=== PATIENT | male | born 1975 | race Caucasian/White ===

== ENCOUNTER 2023-03-23 04:53 | Day surgery (SDC) | payer OTHER ==
[2023-03-23 09:47] VITALS: BMI 47.9
[2023-03-23 10:55] VITALS: TEMP 97.1
[2023-03-23 11:58] LABS: BASO % 0.8 % (0-2.0); EOS % 2.5 % (0-4.5); HEMATOCRIT 40.9 % (35.4-49); HEMOGLOBIN 13.5 GM/dL (11.7-16.9); LYMPH % 21.4 % (8-40); MCH 26.8 pg (25.7-33.7); MEAN CELL VOLUME 81.4 fl (80-96); MONO % 7.9 % (3.8-10.2); NEUT % 67.4 % (42.8-82.8); PLATELET COUNT 414 10^3/uL (134-434); RBC 5.03 M/mm3 (4.00-5.60); RDW 15.4 % (11.9-15.9); WHITE BLOOD COUNT 6.3 K/mm3 (4.0-10.0)
[2023-03-23 12:20] LABS: POTASSIUM 3.6 mmol/L (3.5-5.1)
[2023-03-23 12:22] LABS: ALBUMIN 3.4 g/dl (3.4-5.0); CALCIUM 9.3 mg/dL (8.5-10.1)
[2023-03-23 12:23] LABS: BLOOD UREA NITROGEN 10.6 mg/dL (7-18)
[2023-03-23 12:25] LABS: CREATININE 0.9 mg/dL (0.55-1.3)
[2023-03-23 12:27] LABS: BILIRUBIN,TOTAL 0.4 mg/dL (0.2-1)
[2023-03-23 14:29] VITALS: BP 139/74; PULSE 74; RESP 18
== END 2023-03-23 13:00 | disposition home or self-care (01) ==
LOC: JASU-ENDO 04:53
PROVIDERS: ATTEND Student in an Organized Health Care Education/Training Program
PROC: 0DBK8ZX Excision of Ascending Colon, Via Natural or Artificial Opening Endoscopic, Diagnostic (ICD-10-PCS; 2023-03-23)
PROC: 0DBM8ZX Excision of Descending Colon, Via Natural or Artificial Opening Endoscopic, Diagnostic (ICD-10-PCS; 2023-03-23)
PROC: 0DBH8ZX Excision of Cecum, Via Natural or Artificial Opening Endoscopic, Diagnostic (ICD-10-PCS; 2023-03-23)
PROC: 3E0H8KZ Introduction of Other Diagnostic Substance into Lower GI, Via Natural or Artificial Opening Endoscopic (ICD-10-PCS; 2023-03-23)
PROC: 0DBL8ZX Excision of Transverse Colon, Via Natural or Artificial Opening Endoscopic, Diagnostic (ICD-10-PCS; principal; 2023-03-23 09:30)
DX: Z12.11 Encounter for screening for malignant neoplasm of colon (principal); D12.2 Benign neoplasm of ascending colon; D12.3 Benign neoplasm of transverse colon; D12.4 Benign neoplasm of descending colon; D49.0 Neoplasm of unspecified behavior of digestive system; I10 Essential (primary) hypertension; E11.9 Type 2 diabetes mellitus without complications; Z79.84 Long term (current) use of oral hypoglycemic drugs
CPT/HCPCS: 36415; 71260-TC; 74177-TC; 80053; 82378; 82962; 85025; Q9967